=== PATIENT | female | born 1955 | race Caucasian/White ===

== ENCOUNTER 2017-10-18 08:00 | Outpatient (CLI) | payer OTHER | END 2017-10-18 08:01 | disposition home or self-care (01) | LOC: BICMAMMO 08:00 | PROVIDERS: ATTEND Obstetrics & Gynecology | DX: Z12.31 Encounter for screening mammogram for malignant neoplasm of breast (principal); Z80.3 Family history of malignant neoplasm of breast; R92.1 Mammographic calcification found on diagnostic imaging of breast | CPT/HCPCS: 77063; 77067; G0202 ==

== ENCOUNTER 2018-01-03 14:37 | Outpatient (CLI) | payer OTHER | END 2018-01-03 14:38 | disposition home or self-care (01) | LOC: BICMAMMO 14:37 | PROVIDERS: ATTEND Obstetrics & Gynecology | DX: Z13.820 Encounter for screening for osteoporosis (principal); M85.859 Other specified disorders of bone density and structure, unspecified thigh | CPT/HCPCS: 77080 ==

== ENCOUNTER 2019-01-07 08:09 | Outpatient (CLI) | payer OTHER ==
[~2019-01-07 08:09] MED LIST: ISOVUE-370 76%-LOCM 1 ML ONE
--- NOTE | 2019-01-07 10:41 | CT ---
CT ABDOMEN AND PELVIS WITH AND WITHOUT IV CONTRAST UTILIZING UROGRAM PROTOCOL: INDICATIONS: History of hydronephrosis. COMPARISON: Renal ultrasound dated 10/31/2018 from [facility]. CONTRAST: Isovue-370 70 mL. FINDINGS: The previously seen mild right hydronephrosis has resolved. No renal or ureteral calculus is evident . No gross urothelial lesion is evident. There is a 1.1 cm cyst involving the right mid kidney. Th e visualized bladder is unremarkable. There is a moderate amount of retained stool within the colon. The liver, pancreas, adrenal glands, and spleen appear within normal limits. No free fluid or enlarged lymph nodes are evident. There are mild vascular calcifications involving the abdominal aorta. There is a normal appendix in the right lower quadrant of the abdomen. The rectum and perirectal soft tissues are unremarkable appearing. No definite acute osseous abnormality is evident. There is mild scattered degenerative and osteoarth ritic change. IMPRESSION: 1. Resolution of the previously seen mild right hydronephrosis. 2. Right renal cyst. 3. Moderate amount of retained stool within the colon. POS: CET
== END 2019-01-07 08:10 | disposition home or self-care (01) ==
LOC: BICCT 08:09
PROVIDERS: ATTEND Urology
DX: N13.30 Unspecified hydronephrosis (principal); R35.0 Frequency of micturition; N28.1 Cyst of kidney, acquired; K59.00 Constipation, unspecified
CPT/HCPCS: 74178; Q9966

== ENCOUNTER 2020-03-20 10:23 | Outpatient (CLI) | payer MEDICARE ==
--- NOTE | 2020-03-20 11:06 | MMO ---
Bilateral MAMMO Bilat Screen [facility]. CLINICAL HISTORY: Patient is 65 years old and is seen for screening. The patient has the following family history of breast cancer: mother, at age 65. The patient has no personal history of cancer. The patient has a history of bilateral Cyst Aspiration - Benign. VIEWS: The views performed were: bilateral craniocaudal with tomosynthesis and bilateral mediolateral oblique with tomosynthesis. FILMS COMPARED: The present examination has been compared to prior imaging studies performed at [facility] on 10/07/2014, 10/08/2015, 10/07/2016 and 10/18/2017. This study has been interpreted with the assistance of computer-aided detection. MAMMOGRAM FINDINGS: There are scattered fibroglandular densities. Finding 1: There are stable benign appearing calcifications seen in both breasts. Finding 2: There are several stable intramammary lymph nodes seen in the left breast. There are no suspicious masses, suspicious calcifications, or new areas of architectural distortion. IMPRESSION: THERE IS NO MAMMOGRAPHIC EVIDENCE OF MALIGNANCY. A ROUTINE FOLLOW-UP MAMMOGRAM IN 1 YEAR IS RECOMMENDED. THE RESULTS OF THIS EXAM WERE SENT TO THE PATIENT. ACR BI-RADS Category 2 - Benign finding MAMMOGRAPHY NOTE: 1. A negative mammogram report should not delay a biopsy if a dominant of clinically suspicious mass is present. 2. Approximately 10% to 15% of breast cancers are not detected by mammography. 3. Adenosis and dense breasts may obscure an underlying neoplasm. Reported by: ELDON CHILDRESS MD Electonically Signed: [id number]
--- NOTE | 2020-03-20 14:23 | BD ---
DEXA BONE DENSITY SCAN: DATE: 03/20/2020. COMPARISON: None. HISTORY: Postmenopausal female undergoing screening for osteoporosis. FINDINGS: Lumbar Spine: BMD (g/cm2) L1 0.981 T-Score: -0.1 L2 1.076 T-Score: 0.4 L3 1.025 T-Score: -0.5 L4 1.030 T-Score: -0.3 L1-L4 1.029 T-Score: -0.2 Femoral Neck: 0.647 T-Score: -1.8 Total Femur: 0.861 T-Score: -0.7\ FRAX-WHO fracture risk assessment tool reports a 10-year fracture risk in an untreated patient at 10% for a major osteoporotic fracture and 1.3% for hip fracture. Impression: 1. Normal lumbar spine bone mineral density. 2. 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 POS: ALAN
== END 2020-03-20 10:24 | disposition home or self-care (01) ==
LOC: BICMAMMO 10:23
PROVIDERS: ATTEND Internal Medicine
DX: Z12.31 Encounter for screening mammogram for malignant neoplasm of breast (principal); Z78.0 Asymptomatic menopausal state; M85.859 Other specified disorders of bone density and structure, unspecified thigh; Z91.89 Other specified personal risk factors, not elsewhere classified; Z80.3 Family history of malignant neoplasm of breast
CPT/HCPCS: 77063; 77067; 77080

== ENCOUNTER 2021-03-24 12:54 | Outpatient (CLI) | payer MEDICARE | END 2021-03-24 12:55 | disposition home or self-care (01) | LOC: BICMAMMO 12:54 | PROVIDERS: ATTEND Internal Medicine | DX: Z12.31 Encounter for screening mammogram for malignant neoplasm of breast (principal); Z80.3 Family history of malignant neoplasm of breast | CPT/HCPCS: 77063; 77067 ==

== ENCOUNTER 2021-03-24 13:17 | Outpatient (CLI) | payer MEDICARE | END 2021-03-24 13:18 | disposition home or self-care (01) | LOC: BICCT 13:17 | PROVIDERS: ATTEND Internal Medicine | DX: Z12.2 Encounter for screening for malignant neoplasm of respiratory organs (principal); Z87.891 Personal history of nicotine dependence | CPT/HCPCS: 71271 ==

== ENCOUNTER 2021-10-28 11:32 | Outpatient (CLI) | payer MEDICARE | END 2021-10-28 11:33 | disposition home or self-care (01) | LOC: BICRAD 11:32 | PROVIDERS: ATTEND Internal Medicine | DX: M17.0 Bilateral primary osteoarthritis of knee (principal) ==

== ENCOUNTER 2022-04-05 12:53 | Outpatient (CLI) | payer MEDICARE | END 2022-04-05 12:54 | disposition home or self-care (01) | LOC: BICMAMMO 12:53 | PROVIDERS: ATTEND Internal Medicine | DX: Z12.31 Encounter for screening mammogram for malignant neoplasm of breast (principal); Z13.820 Encounter for screening for osteoporosis; Z12.2 Encounter for screening for malignant neoplasm of respiratory organs; M85.851 Other specified disorders of bone density and structure, right thigh; M85.852 Other specified disorders of bone density and structure, left thigh; Z80.3 Family history of malignant neoplasm of breast; Z87.891 Personal history of nicotine dependence; Z78.0 Asymptomatic menopausal state | CPT/HCPCS: 71271; 77063; 77067; 77080 ==

== ENCOUNTER 2023-03-08 10:40 | Outpatient (CLI) | payer MEDICARE, BC ==
[2023-03-08 12:41] LABS: #Eosinphils 0.2 10x3/uL (0.0-0.5); #Monocytes 0.6 10x3/uL (0.0-1.1); #Neutrophils 3.9 10x3/uL (1.5-8.4); %Basophils 0.3 % (0.0-2.0); %Eosinophils 2.9 % (0.0-6.0); %Lymphocytes 34.8 % (18.0-47.0); %Monocytes 8.6 % (0.0-10.0); %Neutrophils 53.1 % (40.0-75.0); Hemoglobin 12.9 g/dL (12.0-15.5); Mean Corpuscular Hemoglobin 29.9 pg (27.0-33.0); Mean Corpuscular Volume 90.5 fl (81.6-98.3); Mean Platelet Volume 11.5 fl (7.4-10.4); Platelet Count 214 10x3/uL (150-450); Red Blood Cell (RBC) Count 4.32 10x6/uL (3.90-5.03); White Blood Cell (WBC) Count 7.3 10x3/uL (3.5-10.5)
[2023-03-08 12:57] LABS: Prothrombin Time 10.3 sec (9.5-12.1)
[2023-03-08 12:58] LABS: Anion Gap 15 mmol/L (10-20); BUN (Urea Nitrogen) 18 mg/dL (9.8-20.1); Calc. Creatinine Clearance 0 mL/min (70-130); Calcium 9.8 mg/dL (7.8-10.44); Carbon Dioxide 24 mmol/L (23-31); Chloride 105 mmol/L (98-107); Estimated GFR 61; Glucose 81 mg/dL (80-115); Potassium 4.4 mmol/L (3.5-5.1); Sodium 140 mmol/L (136-145)
== END 2023-03-08 10:41 | disposition home or self-care (01) ==
LOC: LABBT 10:40
PROVIDERS: ATTEND Orthopaedic Surgery
DX: Z01.818 Encounter for other preprocedural examination (principal); M17.11 Unilateral primary osteoarthritis, right knee
CPT/HCPCS: 80048; 85025; 85610; 87081; 93005; 93010

== ENCOUNTER 2024-04-23 12:55 | Outpatient (CLI) | payer MEDICARE, BC | END 2024-04-23 12:56 | disposition home or self-care (01) | LOC: BICMAMMO 12:55 | PROVIDERS: ATTEND Internal Medicine | DX: Z12.31 Encounter for screening mammogram for malignant neoplasm of breast (principal); Z13.820 Encounter for screening for osteoporosis; N63.20 Unspecified lump in the left breast, unspecified quadrant; M85.851 Other specified disorders of bone density and structure, right thigh; M85.852 Other specified disorders of bone density and structure, left thigh; Z80.3 Family history of malignant neoplasm of breast | CPT/HCPCS: 77063; 77067; 77080 ==

== ENCOUNTER 2024-04-24 08:47 | Outpatient (CLI) | payer MEDICARE, BC | END 2024-04-24 08:48 | disposition home or self-care (01) | LOC: BICMAMMO 08:47 | PROVIDERS: ATTEND Internal Medicine | DX: R92.30 Dense breasts, unspecified (principal); N62 Hypertrophy of breast; N60.02 Solitary cyst of left breast; Z78.0 Asymptomatic menopausal state; Z98.890 Other specified postprocedural states | CPT/HCPCS: 19083; 76642; 77065; G0279; 88305 ==

== ENCOUNTER 2024-05-09 10:50 | Outpatient (CLI) | payer MEDICARE, BC | END 2024-05-09 10:51 | disposition home or self-care (01) | LOC: BICCT 10:50 | PROVIDERS: ATTEND Internal Medicine | DX: Z12.2 Encounter for screening for malignant neoplasm of respiratory organs (principal); Z87.891 Personal history of nicotine dependence | CPT/HCPCS: 71271 ==